=== PATIENT | male | born 1985 | race Caucasian/White ===

== ENCOUNTER → 2019-04-13 | Outpatient (CLI) | payer OTHER ==
--- NOTE | 2019-04-14 09:11 | REP ---
BILATERAL KNEE MRI: TECHNIQUE: Axial proton density fat saturation, sagittal proton density T2 STIR, water excitation, coronal proton density, proton density fat saturation. LEFT KNEE: Menisci are intact. There is no evidence of a meniscal tear. The cruciate and collateral ligaments are intact. Extensor mechanism is intact. 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 There is mild global chondromalacia in the medial joint compartment along the medial femoral condyle tibial plateau. There is no bone marrow edema or occult fracture. There is a small joint effusion. Medial and lateral patellar retinacula are intact. There is no popliteal cyst. IMPRESSION: No evidence of internal derangement. Mild chondromalacia centrally of the patella and also globally along the medial femoral condyle and tibial plateau. Small joint effusion. RIGHT KNEE: No meniscal tear is seen. The cruciate and collateral ligaments are intact. The extensor mechanism is intact. 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 The medial and lateral patellar retinacula are intact. There is mild diffuse chondromalacia along the medial femoral condyle and tibial plateau. There is no bone marrow edema or occult fracture. There is a small joint effusion. There is a suprapatellar plica. No popliteal cyst is seen. IMPRESSION: No evidence of internal derangement. No meniscal tear. Mild chondromalacia centrally of the patella. Mild chondromalacia of the medial femoral condyle and tibial plateau. Small joint effusion. Suprapatellar plica. Electronically Signed by Adama Bernard MD 04/14/2019 10:47 P
== END ==
LOC: M RAD 08:13
PROVIDERS: ATTEND Student in an Organized Health Care Education/Training Program
DX: M25.561 Pain in right knee (principal); M25.562 Pain in left knee